=== PATIENT | male | born 1950 | race Caucasian/White ===

== ENCOUNTER 2023-01-10 23:50 | Inpatient (IN) | payer MEDICARE, BC ==
[~2023-01-10] VITALS: Ht 185.4 cm; Wt 103.6 kg
[2023-01-11] VITALS (15 sets, daily range): BP systolic 90–121; BP diastolic 60–91
[2023-01-11 01:39] LABS: BASOPHILS # (AUTO) 0.1 (0.0-0.1); BASOPHILS % 0.7 % (0.0-1.0); EOSINOPHILS # (AUTO) 0.1 (0.0-0.4); EOSINOPHILS % 1.7 % (0.0-6.0); HEMATOCRIT 43.9 % (38.2-49.6); HEMOGLOBIN 14.4 g/dL (14.0-18.0); LYMPHOCYTES # (AUTO) 2.3 (1.0-3.2); LYMPHOCYTES % 33.1 % (18.0-39.1); MEAN CORPUSCULAR HGB CONC 32.8 g/dL (31-35); MEAN CORPUSCULAR VOLUME 91.5 fL (81-99); MONOCYTES # (AUTO) 0.7 (0.2-0.8); MONOCYTES % 9.3 % (4.4-11.3); NEUTROPHILS # (AUTO) 3.8 (2.1-6.9); NEUTROPHILS % 55.1 % (38.7-80.0); PLATELET COUNT 202 x10e3/uL (140-360); RED CELL DISTRIBUTION WIDTH 13.2 % (11.7-14.4)
[2023-01-11 01:45] LABS: INR 1.16; PROTHROMBIN TIME 15.3 seconds (11.9-14.5)
[2023-01-11 02:03] LABS: CREATINE KINASE MB 5.3 ng/mL (0-5.0)
[2023-01-11] MEDS ORDERED: ELIQUIS5 MG PO (06:48)
[2023-01-11] MEDS ORDERED: ALLOPURINOL300 MG PO (06:48)
[2023-01-11] MEDS ORDERED: LEVOTHYROXINE100 MC1 IV (06:48)
[2023-01-11] MEDS ORDERED: GABAPENTIN300 MG PO (06:48)
[2023-01-11] MEDS ORDERED: LIPITOR10 MG PO (06:55)
[2023-01-11] MEDS ORDERED: CIALIS20 MG (06:55)
[2023-01-11] MEDS ORDERED: ZOLPIDEM TARTRAT5 MG PO (06:55)
[2023-01-11] MEDS ORDERED: LOSARTAN POTASS25 MG PO (06:55)
[2023-01-11] MEDS ORDERED: METOPROLOL SUCC25 MG PO (06:55)
[2023-01-11] MEDS ORDERED: ONDANSETRON HCL INJ 2MG/ML 2ML 2 MG/ML VIAL IV PRN (08:00)
[2023-01-11] MEDS ORDERED: ACETAMINOPHEN 325 MG TAB PO PRN (08:00)
[2023-01-11] MEDS: GABAPENTIN 300 MG CAP PO SCH ×2 (08:40→16:38)
[2023-01-11] MEDS: ALLOPURINOL 300 MG TAB PO SCH (08:40)
[2023-01-11] MEDS: SENNOSIDES 8.6 MG TAB PO SCH (08:40)
[2023-01-11] MEDS: APIXABAN 5 MG TABLET PO SCH ×2 (08:40→16:38)
[2023-01-11] MEDS: DOCUSATE SODIUM 100 MG CAP PO SCH (08:41)
[2023-01-11] MEDS ORDERED: METOPROLOL TARTRATE 50 MG TAB PO SCH (09:00)
[2023-01-11] MEDS ORDERED: LEVOTHYROXINE SODIUM 100 MCG/VIAL IV SCH (09:00)
[2023-01-11 09:52] LABS: CREATINE KINASE MB 7.2 ng/mL (0-5.0)
[2023-01-11 09:57] LABS: FREE T4 (FREE THYROXINE) 0.94 ng/dL (0.8-1.8); THYROID STIMULATING HORMONE 3.016 uIU/mL (0.350-4.940)
[2023-01-11] MEDS: METOPROLOL TARTRATE 50 MG TAB PO SCH ×2 (11:15→23:05)
[2023-01-11] MEDS ORDERED: METOPROLOL TARTRATE 50 MG TAB PO ONE (17:25)
[2023-01-11 17:47] LABS: CREATINE KINASE MB 6.9 ng/mL (0-5.0)
[2023-01-11] MEDS: ATORVASTATIN 40 MG TAB PO SCH (21:31)
[2023-01-11] MEDS: ZOLPIDEM TARTRATE 5 MG TAB PO SCH (21:31)
[2023-01-12] VITALS (21 sets, daily range): BP systolic 74–118; BP diastolic 46–85
[2023-01-12] MEDS: ZOLPIDEM TARTRATE 5 MG TAB PO SCH (01:16)
[2023-01-12 04:56] LABS: BASOPHILS # (AUTO) 0.1 (0.0-0.1); BASOPHILS % 0.7 % (0.0-1.0); EOSINOPHILS # (AUTO) 0.2 (0.0-0.4); HEMATOCRIT 43.1 % (38.2-49.6); HEMOGLOBIN 13.9 g/dL (14.0-18.0); LYMPHOCYTES # (AUTO) 2.7 (1.0-3.2); LYMPHOCYTES % 39.9 % (18.0-39.1); MEAN CORPUSCULAR HEMOGLOBIN 29.5 pg (28-32); MEAN CORPUSCULAR HGB CONC 32.3 g/dL (31-35); MEAN CORPUSCULAR VOLUME 91.5 fL (81-99); MONOCYTES # (AUTO) 0.8 (0.2-0.8); MONOCYTES % 11.4 % (4.4-11.3); NEUTROPHILS % 44.7 % (38.7-80.0); PLATELET COUNT 176 x10e3/uL (140-360); RED BLOOD COUNT 4.71 x10e6/uL (4.3-5.7); RED CELL DISTRIBUTION WIDTH 13.3 % (11.7-14.4)
[2023-01-12 05:14] LABS: ALBUMIN 3.5 g/dL (3.5-5.0); ALBUMIN/GLOBULIN RATIO 1.5 (0.8-2.0); ANION GAP 13.8 mmol/L (8-16); CREATININE, SERUM 0.99 mg/dL (0.72-1.25); POTASSIUM 3.8 mmol/L (3.5-5.1)
[2023-01-12] MEDS: LEVOTHYROXINE SODIUM 100 MCG TAB PO SCH (05:51)
[2023-01-12] MEDS: SENNOSIDES 8.6 MG TAB PO SCH (09:00)
[2023-01-12] MEDS: ALLOPURINOL 300 MG TAB PO SCH (09:00)
[2023-01-12] MEDS: GABAPENTIN 300 MG CAP PO SCH ×2 (09:00→19:30)
[2023-01-12] MEDS: APIXABAN 5 MG TABLET PO SCH ×2 (09:00→19:30)
[2023-01-12] MEDS: DOCUSATE SODIUM 100 MG CAP PO SCH (09:00)
[2023-01-12] MEDS: METOPROLOL TARTRATE 50 MG TAB PO SCH (12:00)
[2023-01-12] MEDS ORDERED: METOPROLOL TARTRATE INJ 1 MG/ML VIAL IV PRN (13:30)
[2023-01-12] MEDS ORDERED: FENTANYL CITRATE/PF 100MCG/2 ML INJ ONE (15:33)
[2023-01-12] MEDS ORDERED: MIDAZOLAM HCL 2 MG/2 ML VIAL ONE (15:33)
[2023-01-12] MEDS ORDERED: BENZOCAINE 20% SPR 60 ML CAN ONE (15:34)
[2023-01-12] MEDS ORDERED: SODIUM CHLORIDE 0.9% 1000ML 1,000 ML ONE (15:34)
[2023-01-12] MEDS: METOPROLOL TARTRATE 25 MG TAB PO SCH (17:00)
[2023-01-12] MEDS: ATORVASTATIN 40 MG TAB PO SCH (21:25)
[2023-01-13] VITALS (10 sets, daily range): BP systolic 91–139; BP diastolic 46–74
[2023-01-13 04:25] LABS: BASOPHILS # (AUTO) 0.1 (0.0-0.1); BASOPHILS % 0.6 % (0.0-1.0); EOSINOPHILS # (AUTO) 0.2 (0.0-0.4); EOSINOPHILS % 2.3 % (0.0-6.0); HEMATOCRIT 40.4 % (38.2-49.6); HEMOGLOBIN 12.7 g/dL (14.0-18.0); LYMPHOCYTES # (AUTO) 2.6 (1.0-3.2); MEAN CORPUSCULAR HEMOGLOBIN 29.7 pg (28-32); MEAN CORPUSCULAR HGB CONC 31.4 g/dL (31-35); MEAN CORPUSCULAR VOLUME 94.4 fL (81-99); MONOCYTES % 12.7 % (4.4-11.3); NEUTROPHILS % 51.1 % (38.7-80.0); PLATELET COUNT 168 x10e3/uL (140-360); RED BLOOD COUNT 4.28 x10e6/uL (4.3-5.7); RED CELL DISTRIBUTION WIDTH 13.6 % (11.7-14.4)
[2023-01-13 04:44] LABS: ALBUMIN 3.3 g/dL (3.5-5.0); ALBUMIN/GLOBULIN RATIO 1.4 (0.8-2.0); ANION GAP 12.2 mmol/L (8-16); CALCIUM 8.7 mg/dL (8.4-10.2); CREATININE, SERUM 1.03 mg/dL (0.72-1.25); MAGNESIUM 1.9 MG/DL (1.3-2.1); POTASSIUM 4.2 mmol/L (3.5-5.1)
[2023-01-13] MEDS: LEVOTHYROXINE SODIUM 100 MCG TAB PO SCH (05:40)
[2023-01-13] MEDS ORDERED: LOPRESSOR25 MG PO (08:49)
[2023-01-13] MEDS: GABAPENTIN 300 MG CAP PO SCH (09:00)
[2023-01-13] MEDS: DOCUSATE SODIUM 100 MG CAP PO SCH (09:00)
[2023-01-13] MEDS: METOPROLOL TARTRATE 25 MG TAB PO SCH (09:01)
[2023-01-13] MEDS: ALLOPURINOL 300 MG TAB PO SCH (09:01)
[2023-01-13] MEDS: APIXABAN 5 MG TABLET PO SCH (09:01)
[2023-01-13] MEDS: SENNOSIDES 8.6 MG TAB PO SCH (09:01)
== END 2023-01-13 09:40 | disposition home health service (06) | DRG 310 ==
LOC: INTOOBSV 01-11 00:40 → ICU 01-11 00:40 → OBSVTOIN 01-12 10:39
PROVIDERS: ADMIT Internal Medicine; ATTEND Internal Medicine
PROC: B24BZZ4 Ultrasonography of Heart with Aorta, Transesophageal (ICD-10-PCS; principal; 2023-01-12)
PROC: 5A2204Z Restoration of Cardiac Rhythm, Single (ICD-10-PCS; 2023-01-12)
DX: I48.0 Paroxysmal atrial fibrillation (principal); I10 Essential (primary) hypertension; E03.9 Hypothyroidism, unspecified; M10.9 Gout, unspecified; I48.92 Unspecified atrial flutter; G47.00 Insomnia, unspecified; Z79.01 Long term (current) use of anticoagulants
CPT/HCPCS: 36415; 71046; 80053; 82550; 82553; 83735; 84439; 84443; 84484; 85025; 85610; 85730; 92960; 93005; 93306; 93312; 93320; 93325; 93355; 94799; 99252; G0378; J2250; J2405; J7030